=== PATIENT | male | born 1995 | race Caucasian/White ===

== ENCOUNTER 2017-01-30 11:06 | Emergency (ER) | payer MEDICAID ==
[~2017-01-30] VITALS: Ht 175.3 cm; Wt 59.0 kg
[2017-01-30 11:14] VITALS: BP_SYST 135
[2017-01-30 11:48] LABS: BASOPHILS # (AUTO) 0.1 K/uL (0.0-0.2); BASOPHILS % (AUTO) 1.3 % (0.0-2.0); EOSINOPHILS % (AUTO) 0.2 % (0.0-4.0); HEMATOCRIT 47.9 % (36-54); LYMPHOCYTES # (AUTO) 1.3 K/uL (1.0-5.5); LYMPHOCYTES % (AUTO) 14.9 % (20.5-51.5); MEAN CORPUSCULAR HEMOGLOBIN 31 pg (27-31); MEAN CORPUSCULAR HGB CONC 33 % (32-36); MEAN CORPUSCULAR VOLUME 92 fL (79.0-98.0); MONOCYTES # (AUTO) 0.5 K/uL (0.0-1.0); NEUTROPHILS % (AUTO) 77.6 % (40.0-70.0); PLATELET COUNT (AUTO) 307 K/uL (130-430); RED CELL DISTRIBUTION WIDTH 11.9 % (9.0-15.0); WHITE BLOOD COUNT (AUTO) 8.9 K/uL (4.5-11.0)
[2017-01-30 11:52] LABS: CALCIUM 9.7 mg/dL (8.4-11.0); CREATININE 1.18 mg/dL (0.55-1.30); POTASSIUM 4.5 mmol/L (3.5-5.1)
[2017-01-30 11:58] LABS: ALBUMIN 4.9 g/dL (3.4-4.8); TOTAL BILIRUBIN 1.4 mg/dL (0.0-1.0); TOTAL PROTEIN, SERUM 7.8 g/dL (6.4-8.3)
== END 2017-01-30 12:35 | disposition home or self-care (01) ==
LOC: SED 11:06
DX: R10.84 Generalized abdominal pain (principal); R42 Dizziness and giddiness; R11.0 Nausea; Z90.49 Acquired absence of other specified parts of digestive tract
CPT/HCPCS: 36415; 70460-TC; 80053; 83605; 85025; 87040-TC; 99285

== ENCOUNTER 2022-08-27 06:34 | Emergency (ER) | payer MEDICAID ==
[~2022-08-27] VITALS: Ht 175.3 cm; Wt 68.0 kg
[2022-08-27 06:37] VITALS: BP_SYST 148
--- NOTE | 2022-08-27 06:45 | NUR ---
PT FROM HOME WITH C/O OF BODYACHE, FEVER, CONGESTION. PT STATES HES HAD DECREASED APPETITE, AND REPORTS NOT EATING FOR 3 DAYS. PT REPORTS TESTING NEGATIVE FOR COVID. SAFETY PRECAUTIONS IN PLACE. MD AT BEDSIDE WITH PATIENT FOR EVALUATION.
[2022-08-27] MEDS ORDERED: ONDANSETRON HCL 4 MG/2 ML VIAL IVP ONE (07:00)
[2022-08-27] MEDS ORDERED: NACL 0.9% 1,000 ML IV ONE (07:00)
--- NOTE | 2022-08-27 07:00 | NUR ---
ER at bedside examining patient at 0645.
--- NOTE | 2022-08-27 07:01 | NUR ---
COVID/FLU SWAB DROPPED OFF TO LAB AT 6:58
--- NOTE | 2022-08-27 07:10 | NUR ---
RECEIVED PT IN BED #7 FROM HOME WITH CC OF BODY ACHES, CONGESTION, RASH. PT IS STABLE, NAD, VSS, AAOx3, AWAITING ADDITIONAL ASSESSMENTS AND DISPOSITION WITH PLAN OF CARE.
--- NOTE | 2022-08-27 07:19 | NUR ---
REPORT GIVEN TO FRANCK JOHNSON TO ASSUME ALL CARE. ALL QUESTIONS AND CONCERNS ADDRESSED AT THIS POINT.
[2022-08-27 08:32] LABS: BASOPHILS % (AUTO) 0.5 % (0.0-2.0); EOSINOPHILS % (AUTO) 0.1 % (0.0-4.0); HEMATOCRIT 44.2 % (36-54); HEMOGLOBIN 15.5 g/dL (14.0-18.0); LYMPHOCYTES # (AUTO) 0.7 K/uL (1.0-5.5); LYMPHOCYTES % (AUTO) 11.9 % (20.5-51.5); MEAN CORPUSCULAR HEMOGLOBIN 31 pg (27-31); MEAN CORPUSCULAR HGB CONC 35 % (32-36); MEAN CORPUSCULAR VOLUME 89 fL (79.0-98.0); MONOCYTES # (AUTO) 0.6 K/uL (0.0-1.0); MONOCYTES % (AUTO) 10.3 % (1.7-9.3); NEUTROPHILS # (AUTO) 4.4 K/uL (1.8-7.7); NEUTROPHILS % (AUTO) 77.2 % (40.0-70.0); PLATELET COUNT (AUTO) 188 K/uL (130-430); RED BLOOD CELL COUNT(AUTO) 4.98 MIL/uL (4.2-6.2); RED CELL DISTRIBUTION WIDTH 13.2 % (9.0-15.0); WHITE BLOOD COUNT (AUTO) 5.7 K/uL (4.8-10.8)
[2022-08-27 08:40] LABS: CREATININE 0.89 mg/dL (0.55-1.30)
[2022-08-27 08:47] LABS: ALBUMIN 4.1 g/dL (3.4-4.8); TOTAL BILIRUBIN 0.5 mg/dL (0.0-1.0)
[2022-08-27] MEDS ORDERED: ONDA-8 TL (08:55)
[2022-08-27] MEDS ORDERED: IBUP-1969 PO (08:55)
--- NOTE | 2022-08-27 09:00 | NUR ---
IV NS BOLUS COMPLETE
--- NOTE | 2022-08-27 09:09 | NUR ---
Patient given written and verbal discharge instructions and verbalizes understanding. ER MD discussed with patient the results and treatment provided. Patient in stable condition. ID arm band removed. IV catheter removed intact and dressing applied, no active bleeding. Rx of zofran and ibuprofen given. Patient educated on pain management and to follow up with PMD. Opportunity for questions provided and answered. Medication side effect fact sheet provided.
== END 2022-08-27 09:09 | disposition home or self-care (01) ==
LOC: SED 06:34
DX: B34.9 Viral infection, unspecified (principal); R05.9 Cough, unspecified; R50.9 Fever, unspecified; R09.81 Nasal congestion; Z79.899 Other long term (current) drug therapy; Z20.822 Contact with and (suspected) exposure to COVID-19
CPT/HCPCS: 99283; 96374; 96361; 87426; 80053; 85025; 36415; 87804 ×2; J2405; J7030